=== PATIENT | male | born 1950 | race Caucasian/White ===

== ENCOUNTER 2020-08-17 07:55 | Inpatient (IN) | payer MEDICARE, OTHER, SELFPAY ==
[2020-08-17] VITALS (19 sets, daily range): BP systolic 111–138; BP diastolic 66–92; PULSE 64–84; RESP 16–26; TEMP 36.2–36.7; O2SAT 95–98; BMI 32.4
--- NOTE | 2020-08-17 07:57 | DI.RAD.S_ITS ---
PROCEDURE: XR CHEST 1V INDICATIONS: chest pain TECHNIQUE: One view of the chest was acquired. COMPARISON: None. FINDINGS: Surgical changes and devices: None. Lungs and pleura: Lungs are clear. No pleural effusions or pneumothorax. Mediastinum: Mediastinal contours appear normal. Heart size is normal. Bones and chest wall: No suspicious bony lesions. Overlying soft tissues appear unremarkable. IMPRESSION: No acute cardiopulmonary abnormality. Dictated by: Silverio Ovalles M.D. on 08/17/2020 at 8:16 Approved by: Silverio Ovalles M.D. on 08/17/2020 at 8:16
[2020-08-17 08:18] LABS: Add Manual Diff / Slide Review NO; Basophils Absolute Auto 100 /uL (0-100); Eosinophils Absolute Auto 300 /uL (0-450); Eosinophils Percent Auto 3.4 % (2-4); Hematocrit 41.8 % (41-53); Hemoglobin 13.9 g/dL (13.5-17.5); Lymphocytes Absolute Auto 1900 /uL (1100-4500); Mean Corpuscular HGB Conc 33.2 % (30-36); Mean Corpuscular Hemoglobin 31.7 PG (26-34); Mean Corpuscular Volume 95.4 fL (80-100); Monocytes Absolute Auto 400 /uL (0-900); Neutrophils Absolute Auto 5500 /uL (1500-7000); Neutrophils Percent Auto 67.6 % (50-75); Platelet Count 284 X10^3/uL (150-400); Red Blood Cell Count 4.38 X10^6/uL (4.5-5.9); White Blood Cell Count 8.1 X10^3/uL (4.5-11.0)
[2020-08-17 08:36] LABS: Alanine Aminotransferase 22 IU/L (<50); Albumin 4.4 g/dL (3.5-5.0); Albumin Globulin Ratio 1.6 (1.0-2.8); Alkaline Phosphatase 44 U/L (38-126); Aspartate Aminotransferase 28 IU/L (17-59); BUN Creatinine Ratio 24.6 (6-22); Bilirubin Total 0.6 mg/dL (0.2-1.3); Blood Urea Nitrogen 34 mg/dL (9-20); Calcium 9.4 mg/dL (8.4-10.2); Carbon Dioxide 18 mmol/L (22-32); Chloride 111 mmol/L (98-107); Creatine Kinase 105 U/L (55-170); Estimated Glomerular Filt Rate 50.8 mL/min (>60); Globulin 2.7 g/dL (1.7-4.1); Glucose 155 mg/dL (80-110); HEMOLYSIS 29 (0-50); Lipase 171 U/L (23-300); Potassium 5.3 mmol/L (3.4-5.1); Sodium 138 mmol/L (137-145); Total Protein 7.1 g/dL (6.3-8.2)
[2020-08-17 08:47] LABS: Troponin I < 0.012 ng/mL (0.01-0.034)
[2020-08-17 08:51] LABS: CKMB % Relative Index 1.9 % (1.5-5.0)
--- NOTE | 2020-08-17 08:52 | ED.CHESTPAIN ---
HPI - Chest Pain General Chief Complaint: Chest Pain Stated Complaint: chest pain Time Seen by Provider: 08/17/20 07:57 Source: patient and family Mode of arrival: Ambulatory Limitations: no limitations History of Present Illness HPI narrative: This is a 70-year-old male who comes emergency department with complaint of chest pain radiating down his left upper extremity for the last 24 hours intermittently. Patient states he does typically get pain in his right upper extremity when he sleeping and is worse when he lays on his side. Usually he can roll to his back and better. Overnight it did not matter which side he laid on and willing to his back was sometimes helpful. When he got up this morning and was moving about he continued to have pain in his left upper extremity. He states it does radiate up towards is shoulder and into his left substernal chest. He states he has chronic neck and back pain. He denies any pins and needles in his left upper extremity which he normally gets with his right upper extremity. Was not sweaty, he denies any nausea or vomiting. He did feel little short of breath. He felt a little dizzy. He has not had any recent swelling in his extremities. His most recent episode was at 6:30 a.m. he described as lasting for few minutes and then resolved. Patient has not had any additional so far. Patient does have a history of cardiac stents x3 in 2004. He has had 2 strokes and had a ANUSHA after his 2nd stroke approximately a year ago which he was told was normal. Patient has had lower laminectomy in his lumbar spine as well as ablation than his lumbar spine x2 patient lives in her missed in or again and typically gets his cardiac care and can awake. He is on Plavix, metoprolol, lisinopril, atorvastatin, tamsulosin, fenofibrate and gabapentin as well as nortriptyline. No allergies. No tobacco, occasional alcohol, no illicit. He is currently visiting his daughter here locally. Related Data Home Medications Medication Instructions Recorded Confirmed atorvastatin 40 mg tablet 80 mg PO DAILY 08/17/20 08/17/20 clopidogrel 75 mg tablet 75 mg PO DAILY 08/17/20 08/17/20 fenofibrate nanocrystallized 145 145 mg PO DAILY 08/17/20 08/17/20 mg tablet gabapentin 300 mg capsule 300 mg PO BID 08/17/20 08/17/20 lisinopril 40 mg tablet 20 mg PO DAILY 08/17/20 08/17/20 metoprolol tartrate 50 mg tablet 37.5 mg PO BID 08/17/20 08/17/20 multivitamin with minerals-folic 0.4 tab PO DAILY 08/17/20 08/17/20 acid 0.4 mg tablet (Adult One Daily Multivitamin) nortriptyline 50 mg capsule 50 mg PO BEDTIME 08/17/20 08/17/20 nortriptyline 50 mg capsule mg 08/17/20 omega 0-jqc-bqn-fish oil 100 1,000 cap PO DAILY 08/17/20 08/17/20 mg-160 mg-1,000 mg capsule (Fish Oil) omeprazole 20 mg tablet,delayed 20 mg PO DAILY 08/17/20 08/17/20 release sennosides 8.6 mg tablet (senna) 8.6 mg PO BEDTIME 08/17/20 08/17/20 tamsulosin 0.4 mg capsule 0.4 mg PO DAILY 08/17/20 08/17/20 tamsulosin 0.4 mg capsule mg PO 08/17/20 vitamin E 200 unit capsule 100 unit PO DAILY 08/17/20 08/17/20 Allergies Allergy/AdvReac Type Severity Reaction Status Date / Time No Known Drug Allergies Allergy Verified 08/17/20 08:03 Review of Systems Review of Systems ROS Unobtainable: All systems reviewed & are unremarkable except as noted in HPI and below Patient History Medical History (Updated 08/17/20 @ 16:55 by Jose Antonio Motta DO) BPH (benign prostatic hyperplasia) CAD (coronary artery disease) CVA (cerebral vascular accident) HLD (hyperlipidemia) HTN (hypertension) Surgical History (Updated 08/17/20 @ 14:29 by Jose Antonio Motta DO) H/O right knee surgery History of ankle surgery Hx of heart artery stent Family History Other Hyperlipidemia Hypertension Social History household members: spouse Smoking Status: Never smoker Smoking Status: Never smoker alcohol intake frequency: a few times a month Substance Use Type: does not use Exam Narrative Exam Narrative: GENERAL: Alert and oriented x three, well-nourished male in mild distress. HEENT: Head normocephalic, atraumatic, EOMI, pupils reactive, face symmetric, moist mucous membranes NECK: Supple, full range of motion CARDIOVASCULAR: Regular rate and rhythm without murmurs, rubs or gallops. RESPIRATORY: Breath sounds equal bilaterally, no wheezes rales or rhonchi. ABDOMEN: Soft, nontender. Normoactive bowel sounds all 4 quadrants. No guarding or rebound, rigidity, no mass : No CVA tenderness EXTREMITIES: Normal range of motion, no edema. Neurovascularly intact. Full range of motion of upper and lower extremities. NEUROLOGICAL: Cranial nerves II through XII grossly intact. Moving all extremities SKIN: Warm, dry, no petechiae, no rashes or lesions. Initial Vital Signs Initial Vital Signs: Vital Signs Temperature 98.1 F 08/17/20 08:03 Pulse Rate 68 08/17/20 08:03 Respiratory Rate 22 08/17/20 08:03 Blood Pressure 113/66 08/17/20 08:03 Pulse Oximetry 97 08/17/20 08:03 Scores HEART Score Heart Score history: Highly Suspicious Heart Score EKG: Non-Specific repolarization disturbance Heart Score Age: > or = 65 years old Heart Score risk factors: > 3 risk factors or hx of atherosclerotic disease Heart Score troponin: < or = to normal limit Heart Score Total: 7 Course Orders Ordered: Acetaminophen (Acetaminophen 325 Mg Tablet) 650 mg PO Q6HR PRN PRN Reason: Fever/Mild Pain (1-3) Aspirin (Aspirin Ec 81 Mg Tablet) 81 mg PO DAILY [facility] Atorvastatin Calcium (Atorvastatin 20 Mg Tablet) 40 mg PO BEDTIME [facility] Heparin Sodium (Porcine) (Heparin 5,000 Unit/Ml Vial) 5,000 unit SUBCUT BID [facility] Naloxone HCl (Naloxone 0.4 Mg/Ml Vial) 0.2 mg IV Q2MIN PRN PRN Reason: Opiate Reversal Discontinued Medications Aspirin (Aspirin 81 Mg Chew Tab) 324 mg PO NOW ONE Stop: 08/17/20 09:58 Last Admin: 08/17/20 10:10 Dose: 324 mg Documented by: AUPDIKE Atorvastatin Calcium (Atorvastatin 20 Mg Tablet) 80 mg PO BEDTIME [facility] Consultations Consultation #1: Dr. Dukes, start work up here. keep for observation and stress testing. We did discuss Dr. Ramirez recommendations but do not have ability to ship to [facility]. There is no availability at surrounding hospitals in the region as well patient is asymptomatic with negative troponins x2 and no acute EKG testing. His symptoms are concerning for cardiac cause him feel appropriate to keep for observation. Dr. Dukes asked to be re-contacted if not any new changes. Consultation #2: Dr. Motta, on discussed patient's symptoms, labs and EKG findings today so far. Cardiology recommendations from Dr. Dukes. Plan for observation and stress testing in the a.m.. Vital Signs Vital signs: Vital Signs - 8 hr 08/17/20 08:03 08/17/20 08:09 08/17/20 08:30 Temperature 98.1 F Pulse Rate 68 79 73 Respiratory Rate 22 18 23 Blood Pressure 113/66 Pulse Oximetry 97 97 97 08/17/20 09:00 08/17/20 09:30 08/17/20 10:00 Temperature Pulse Rate 72 72 67 Respiratory Rate 18 24 Blood Pressure Pulse Oximetry 96 96 96 08/17/20 10:06 08/17/20 10:30 08/17/20 11:00 Temperature Pulse Rate 67 66 66 Respiratory Rate 23 26 H 22 Blood Pressure 123/81 124/73 119/75 Pulse Oximetry 97 96 96 MDM - Chest Pain Lab Data Result diagrams: 08/17/20 08:08 08/17/20 08:08 Labs: Lab Results 08/17/20 08/17/20 08/17/20 Range/Units 08:08 08:08 08:08 WBC 8.1 (4.5-11.0) X10^3/uL RBC 4.38 L (4.5-5.9) X10^6/uL Hgb 13.9 (13.5-17.5) g/dL Hct 41.8 (41-53) % MCV 95.4 (80-100) fL MCH 31.7 (26-34) PG MCHC 33.2 (30-36) % RDW 13.0 (11.6-14.8) % Plt Count 284 (150-400) X10^3/uL Neut % (Auto) 67.6 (50-75) % Lymph % (Auto) 23.0 L (25-40) % [place] % (Auto) 5.0 (3-14) % Eos % (Auto) 3.4 (2-4) % Baso % (Auto) 1.0 (0-2) % Neut # (Auto) 5500 (8977-6013) /uL Lymph # (Auto) 1900 (9367-7734) /uL [place] # (Auto) 400 (0-900) /uL Eos # (Auto) 300 (0-450) /uL Baso # (Auto) 100 (0-100) /uL Sodium 138 (137-145) mmol/L Potassium 5.3 H (3.4-5.1) mmol/L Chloride 111 H (98-107) mmol/L Carbon Dioxide 18 L (22-32) mmol/L BUN 34 H (9-20) mg/dL Creatinine 1.38 H (0.66-1.25) mg/dL Estimated GFR 50.8 L (>60) mL/min BUN/Creatinine Ratio 24.6 H (6-22) Glucose 155 H (80-110) mg/dL Calcium 9.4 (8.4-10.2) mg/dL Total Bilirubin 0.6 (0.2-1.3) mg/dL AST 28 (17-59) IU/L ALT 22 (<50) IU/L Alkaline Phosphatase 44 (38-126) U/L Total Creatine Kinase 105 (55-170) U/L CK-MB (CK-2) 2.00 (<2.37) ng/mL CK-MB (CK-2) Rel Index 1.9 (1.5-5.0) % Troponin I < 0.012 (0.01-0.034) ng/mL NT-Pro-B Natriuret Pep 40 (<125) pg/mL Total Protein 7.1 (6.3-8.2) g/dL Albumin 4.4 (3.5-5.0) g/dL Globulin 2.7 (1.7-4.1) g/dL Albumin/Globulin Ratio 1.6 (1.0-2.8) Lipase 171 (23-300) U/L 08/17/20 Range/Units 10:00 WBC (4.5-11.0) X10^3/uL RBC (4.5-5.9) X10^6/uL Hgb (13.5-17.5) g/dL Hct (41-53) % MCV (80-100) fL MCH (26-34) PG MCHC (30-36) % RDW (11.6-14.8) % Plt Count (150-400) X10^3/uL Neut % (Auto) (50-75) % Lymph % (Auto) (25-40) % [place] % (Auto) (3-14) % Eos % (Auto) (2-4) % Baso % (Auto) (0-2) % Neut # (Auto) (8492-5276) /uL Lymph # (Auto) (8775-6989) /uL [place] # (Auto) (0-900) /uL Eos # (Auto) (0-450) /uL Baso # (Auto) (0-100) /uL Sodium (137-145) mmol/L Potassium (3.4-5.1) mmol/L Chloride (98-107) mmol/L Carbon Dioxide (22-32) mmol/L BUN (9-20) mg/dL Creatinine (0.66-1.25) mg/dL Estimated GFR (>60) mL/min BUN/Creatinine Ratio (6-22) Glucose (80-110) mg/dL Calcium (8.4-10.2) mg/dL Total Bilirubin (0.2-1.3) mg/dL AST (17-59) IU/L ALT (<50) IU/L Alkaline Phosphatase (38-126) U/L Total Creatine Kinase (55-170) U/L CK-MB (CK-2) (<2.37) ng/mL CK-MB (CK-2) Rel Index (1.5-5.0) % Troponin I < 0.012 (0.01-0.034) ng/mL NT-Pro-B Natriuret Pep (<125) pg/mL Total Protein (6.3-8.2) g/dL Albumin (3.5-5.0) g/dL Globulin (1.7-4.1) g/dL Albumin/Globulin Ratio (1.0-2.8) Lipase (23-300) U/L ECG Data Interpretation: Sinus rhythm nonspecific interventricular conduction delay. Rate of 77 P are 172 QRS of 122, QTC of 402. No acute ST elevation appreciated but patient does have she pain which but no prior EKGs for comparison. EKG 2. Shows nonspecific rhythm, rate of 68, P are 160 QRS of 124 and QTC 387. Nonspecific change. able to obtain EKG from [facility] from 07/03/20 which does appear similar to todays EKGS. [facility] Narrative Medical decision making narrative: This is a 70-year-old male with symptoms that are concerning for cardiac cause of his chest discomfort. Patient did have a prior EKG did not show any acute EKG changes from his old EKG from June of 2020. Troponin has been negative x2 but with his cardiac history and symptomatology felt it was prudent to keep patient for observation and stress testing. This was discussed with Cardiology and Dr. Dukes agreed. Spoke with our hospitalist who kindly accepts for observation. Discharge Plan Departure Patient Disposition: Admitted as Observation Clinical Impression: Chest pain Admit Date/Time: 08/17/20 12:29 Admit Provider: Jose Antonio Motta
[2020-08-17 09:26] LABS: NT-proBNP (BNP-Adult 18+) 40 pg/mL (<125)
[2020-08-17] MEDS: ASPIRIN 81 MG CHEW TAB 324 MG PO (10:10)
[2020-08-17 10:42] LABS: Troponin I < 0.012 ng/mL (0.01-0.034)
[2020-08-17 14:06] LABS: COVID19 - ADMIT (NP swab/PCR) Negative (Negative)
--- NOTE | 2020-08-17 14:08 | DI.MRI.S_ITS ---
PROCEDURE: MR STROKE Pre- and post-contrast brain MRI, non-contrast brain MR angiogram, pre- and postcontrast neck MR angiogram INDICATIONS: L arm tingling, numbness TECHNIQUE: Brain: Noncontrast axial T1 spin echo, axial T2 fast spin echo, sagittal and axial FLAIR, coronal T2 fast spin echo, axial gradient echo, axial diffusion and ADC through the brain. After the administration of contrast, axial 3D VIBE of the cranial vasculature and brain. Brain MRA: Non-contrast 3-D time of flight MR angiogram, with multiple uidhxnp-tfuwtfbse-omvcattcyj (MIP) reformats performed. Neck MRA: Axial and sagittal TruFISP through the neck. Coronal dynamic MR angiogram during administration of contrast in the arterial and venous phases, with 3-dimenstional kbkcpms-yirydhhcy-uoentidjaz (MIP) reformats constructed from subtraction images. COMPARISON: None. FINDINGS: Image quality: Degraded by susceptibility artifact related to metallic staple in the right frontal scalp. BRAIN: CSF spaces: Ventricles are normal in size and shape. Basal cisterns are patent. No extra-axial fluid collections. Brain: No intracranial bleeds or mass effects. There is mild, diffuse cerebral volume loss. Harris-white matter interface is normal. Diffusion weighted images show no acute ischemic insults. Chronic infarct involving the medial aspect of the right occipital lobe is noted. Chronic, small lacunar infarct noted in the posterior aspect of the left temporal lobe. Brainstem appears normal. Normal intravascular flow voids are present. Dural sinuses demonstrate normal postcontrast enhancement. No abnormal intracranial enhancement. Incidental note made of a small developmental venous anomaly in the right cerebellar hemisphere. Skull and face: Calvarial marrow signal is normal. Orbits appear normal. Sinuses: Sinuses and mastoids are clear. BRAIN MR ANGIOGRAM: Anterior circulation: Intracranial internal carotid arteries are normal in size and enhancement. The flow within the paired anterior cerebral arteries is normal and symmetric. The flow within the middle cerebral arteries is normal and symmetric. The anterior communicating artery is seen. No stenoses, occlusions, or aneurysms. Posterior circulation: The visualized portions of the vertebral arteries demonstrate normal caliber, and join to form a normal appearing basilar artery. Short segment, high-grade stenoses noted in the origin and distal P1 segment of the right posterior cerebral artery. Short segment, high-grade stenosis noted in the distal P1 segment of the left posterior cerebral artery. No occlusions, or aneurysms. NECK MR ANGIOGRAM: Carotids: Great vessels demonstrate a conventional anatomy as they arise from the aortic arch. The origins of the common carotid arteries appear patent. The calibers and courses of both common carotid arteries are normal. Atherosclerotic irregularity noted in the origins of the internal carotid arteries bilaterally which causes less than 50% stenosis of the vessels. Posterior circulation: Mild atherosclerotic stenosis noted in the origin of the right vertebral artery. Moderate atherosclerotic stenosis in the origin of the left vertebral artery. More superior portions of both vertebral arteries demonstrate normal course and caliber, and join to form a normal appearing basilar artery. Miscellaneous: Subclavian arteries appear patent. Pre-contrast images through the neck show no soft tissue abnormalities. IMPRESSION: BRAIN MRI: 1. No acute intracranial disease process. 2. No areas of acute infarction. 3. No intracranial hemorrhage. 4. Chronic right occipital infarct and small chronic posterior left temporal lacunar infarct. Area 5. No abnormal intracranial mass or suspicious postcontrast enhancement. BRAIN MR ANGIOGRAM: 1. Multifocal high-grade stenoses involving the P1 segment of the right posterior cerebral artery and high-grade stenosis of the distal P1 segment of the left posterior cerebral artery. 2. No hemodynamic significant stenosis involving the anterior circulation. 3. No large vessel occlusion or aneurysm. NECK MR ANGIOGRAM: 1. Less than 50% stenosis of the origins of the internal carotid arteries bilaterally. 2. Mild stenosis of the origin of the right vertebral artery and moderate stenosis of the origin the left vertebral artery. Dictated by: Anay Todd MD, PhD on 08/17/2020 at 16:54 Approved by: Anay Todd MD, PhD on 08/17/2020 at 17:00
--- NOTE | 2020-08-17 14:08 | DI.CT.S_ITS ---
PROCEDURE: CT STROKE INDICATIONS: L facial droop, L arm tingling now resolved TECHNIQUE: Noncontrast 4.5 mm thick angled axial sections acquired from the foramen magnum to the vertex, with coronal reformats. For radiation dose reduction, the following was used: automated exposure control, adjustment of mA and/or kV according to patient size. COMPARISON: None. FINDINGS: Image quality: Excellent. CSF spaces: Basal cisterns are patent. No extra-axial fluid collections. The ventricles are symmetric in size and shape. Brain: Encephalomalacia and gliosis noted in the right [place] territory in the medial occipital and temporal lobes. No intracranial bleeds or masses. There is cerebral volume loss for age, with resultant ventricular and sulcal prominence. There are periventricular and deep white matter chronic small vessel ischemic changes. There is intracranial internal carotid artery atherosclerosis. Skull and face: Calvarium and visualized facial bones appear intact, without suspicious lesions. Sinuses: Bilateral maxillary nasal antral windows noted, and small 1 cm left maxillary sinus retention cyst present. IMPRESSION: 1. No intracranial hemorrhage or mass effect. 2. Old right [place] infarct 3. Prior maxillary sinus surgery This study fulfills neurological imaging criteria for inclusion or exclusion of acute stroke therapies based on available published neurological guidelines. Critical results were discussed with the patient's nurse on the floor, Keshia, at 02:13 PM [place] time on 08/17/20 Dictated by: Jack Sun M.D. on 08/17/2020 at 14:07 Approved by: Jack Sun M.D. on 08/17/2020 at 14:15
--- NOTE | 2020-08-17 14:20 | PC.ADMIT ---
[id number] [facility] Admission Note: Safe hand off from Yvette TACO MAKER. Patient arrived via wheelchair and safe transfer to bed. Patient is ambulating, just stand by assist. Patient VSS. Lung sounds clear bilaterally and bowel tones are active in all quadrants. Tele was initiated and patient initial reading was tele: NS, BBB. During patient intake patient was describing symptoms on admission and stated that he had facial droop this AM and tingling in L arm. Patient also asked me if it was abnormal to have difficulty swallowing. We talked about his baseline and that normally he has the ability to swallow. Dr. Motta notified at 1415 of these findings. The patient,Lavelle Moseley,70 y/o, was given written information regarding hospital policies, unit procedures and contact persons. Patient's smoking status: Never smoker. Vital Signs - 8 hr 08/17/20 08:03 08/17/20 08:09 08/17/20 08:30 Temperature 98.1 F Pulse Rate 68 79 73 Respiratory Rate 22 18 23 Blood Pressure 113/66 Pulse Oximetry 97 97 97 08/17/20 09:00 08/17/20 09:30 08/17/20 10:00 Temperature Pulse Rate 72 72 67 Respiratory Rate 18 24 Blood Pressure Pulse Oximetry 96 96 96 08/17/20 10:06 08/17/20 10:30 08/17/20 11:00 Temperature Pulse Rate 67 66 66 Respiratory Rate 23 26 H 22 Blood Pressure 123/81 124/73 119/75 Pulse Oximetry 97 96 96 08/17/20 11:30 08/17/20 12:03 08/17/20 12:04 Temperature Pulse Rate 66 64 66 Respiratory Rate 19 18 19 Blood Pressure 120/72 121/77 Pulse Oximetry 97 98 98 08/17/20 12:30 08/17/20 13:15 08/17/20 13:56 Temperature 97.9 F Pulse Rate 68 70 Respiratory Rate 17 16 Blood Pressure 111/74 128/75 Pulse Oximetry 98 95 95
--- NOTE | 2020-08-17 14:25 | PM.HP.1 ---
History of Present Illness History of Present Illness Date Patient Seen: 08/17/20 Time Patient Seen: 14:25 Chief complaint: chest pain Narrative: This is a 70-year-old male with a past medical history of CAD (3x stents in 2004), prior stroke with left-sided hemianopia as his only residual deficit, hypertension, BPH who presented with intermittent chest pain for the past week. Patient states that he has been having episodes of chest pain, usually at night that her left-sided and somewhat radiating into his left shoulder that usually resolve with changing to his other side. Had however this morning the chest pain would not go way. This pain was different than the others and was more of a squeezing like sensation over the left side of his chest with radiation into his left arm. Subsequently at the same time, he experienced less than 10 minutes of left-sided facial droop, left arm weakness, numbness, and difficulty speaking. The neurological symptoms were not stated to the emergency room provider. He states further that over the past few weeks he has become quite sweaty with exertion but denies any shortness of breath or palpitations. He denies any headaches, or vision changes. He denies fever or chills. He typically lives in [place], currently visiting the area. In the emergency room, the patient's vital signs were unremarkable. Initial laboratory evaluation did not show any obvious abnormalities, but potassium was mildly high at 5.3, CO2 slightly low 18, BUN slightly up at 34, creatinine slightly up at 1.38, his baseline is unknown. Glucose was 155. His troponin testing was negative x2. He was admitted initially for evaluation of his chest pain after consultation with cardiology recommended stress testing, however given his TIA symptoms he was also ordered for a CT scan which did not show any active bleeding and an MRI. Patient History Medical History (Updated 08/17/20 @ 16:55 by Jose Antonio Motta DO) BPH (benign prostatic hyperplasia) CAD (coronary artery disease) CVA (cerebral vascular accident) HLD (hyperlipidemia) HTN (hypertension) Surgical History (Updated 08/17/20 @ 14:29 by Jose Antoino Motta DO) H/O right knee surgery History of ankle surgery Hx of heart artery stent Family & Social History Family History Other Hyperlipidemia Hypertension Social History: household members spouse Prior Living Arrangements House Safety & Behavioral: Feels Safe in Current Yes Environment Been Physically Hurt or No Threatened By a Person Suicidal Ideation Description None Suicide Plan Description No Plan Tobacco & Substance use: Smoking Status Never smoker alcohol intake frequency a few times a month Substance Use Type does not use Meds Home Medications and Allergies Home Medications Medication Instructions Recorded Confirmed Type atorvastatin 40 mg tablet 80 mg PO DAILY 08/17/20 08/17/20 History clopidogrel 75 mg tablet 75 mg PO DAILY 08/17/20 08/17/20 History fenofibrate nanocrystallized 145 145 mg PO DAILY 08/17/20 08/17/20 History mg tablet gabapentin 300 mg capsule 300 mg PO BID 08/17/20 08/17/20 History lisinopril 40 mg tablet 20 mg PO DAILY 08/17/20 08/17/20 History metoprolol tartrate 50 mg tablet 37.5 mg PO BID 08/17/20 08/17/20 History multivitamin with minerals-folic 0.4 tab PO DAILY 08/17/20 08/17/20 History acid 0.4 mg tablet (Adult One Daily Multivitamin) nortriptyline 50 mg capsule 50 mg PO BEDTIME 08/17/20 08/17/20 History nortriptyline 50 mg capsule mg 08/17/20 History omega 2-jao-vfu-fish oil 100 1,000 cap PO DAILY 08/17/20 08/17/20 History mg-160 mg-1,000 mg capsule (Fish Oil) omeprazole 20 mg tablet,delayed 20 mg PO DAILY 08/17/20 08/17/20 History release sennosides 8.6 mg tablet (senna) 8.6 mg PO BEDTIME 08/17/20 08/17/20 History tamsulosin 0.4 mg capsule 0.4 mg PO DAILY 08/17/20 08/17/20 History tamsulosin 0.4 mg capsule mg PO 08/17/20 History vitamin E 200 unit capsule 100 unit PO DAILY 08/17/20 08/17/20 History Allergies Allergy/AdvReac Type Severity Reaction Status Date / Time No Known Drug Allergies Allergy Verified 08/17/20 08:03 Review of Systems Review of Systems Narrative: All other systems reviewed with the patient and are negative unless otherwise stated. Exam Vital Signs (past 8 hours): - 08/17/20 08:03 08/17/20 08:09 08/17/20 08:30 Temperature 98.1 F Pulse Rate 68 79 73 Respiratory Rate 22 18 23 Blood Pressure 113/66 Pulse Oximetry 97 97 97 08/17/20 09:00 08/17/20 09:30 08/17/20 10:00 Temperature Pulse Rate 72 72 67 Respiratory Rate 18 24 Blood Pressure Pulse Oximetry 96 96 96 08/17/20 10:06 08/17/20 10:30 08/17/20 11:00 Temperature Pulse Rate 67 66 66 Respiratory Rate 23 26 H 22 Blood Pressure 123/81 124/73 119/75 Pulse Oximetry 97 96 96 08/17/20 11:30 08/17/20 12:03 08/17/20 12:04 Temperature Pulse Rate 66 64 66 Respiratory Rate 19 18 19 Blood Pressure 120/72 121/77 Pulse Oximetry 97 98 98 08/17/20 12:30 08/17/20 13:15 08/17/20 13:56 Temperature 97.9 F Pulse Rate 68 70 Respiratory Rate 17 16 Blood Pressure 111/74 128/75 Pulse Oximetry 98 95 95 Oxygen Delivery Method Room Air Oxygen Flow Rate 0 Narrative Exam Narrative: GENERAL APPEARANCE: Well developed, well nourished, in no acute distress. SKIN: Inspection of the skin reveals no rashes, ulcerations or petechiae. HEENT: Normocephalic atraumatic, extraocular muscles are intact, oropharynx is clear and mucous membranes are moist, neck is supple without adenopathy NECK: Supple and symmetric. There was no thyroid enlargement, and no tenderness, or masses were felt. CHEST: Normal AP diameter and normal contour without any kyphoscoliosis. LUNGS: Auscultation of the lungs revealed no wheezes, rhonchi, or rales. CARDIOVASCULAR: There was a regular rate and rhythm without any murmurs, gallops, rubs. Peripheral pulses were 2+ and symmetric. ABDOMEN: Soft and nontender with normal bowel sounds. No ascites was noted. MUSCULOSKELETAL: There was no tenderness or effusions noted. Muscle strength and tone were normal. EXTREMITIES: No cyanosis, clubbing or edema. NEUROLOGIC: Alert and oriented x 3. Normal affect. Strength is +5/5 in the Upper Extremities and Lower Extremities Bilaterally. Sensation to touch was normal. :Left hemianopia (old from prior CVA, unchanged) Objective ECG Impression: Sinus rhythm with a nonspecific interventricular conduction delay Labs Result Diagrams: 08/17/20 08:08 08/17/20 08:08 Labs: Laboratory Results - last 24 hr 08/17/20 08/17/20 08/17/20 08:08 08:08 08:08 WBC 8.1 RBC 4.38 L Hgb 13.9 Hct 41.8 MCV 95.4 MCH 31.7 MCHC 33.2 RDW 13.0 Plt Count 284 Neut % (Auto) 67.6 Lymph % (Auto) 23.0 L M[place]racken % (Auto) 5.0 Eos % (Auto) 3.4 Baso % (Auto) 1.0 Neut # (Auto) 5500 Lymph # (Auto) 1900 [place] # (Auto) 400 Eos # (Auto) 300 Baso # (Auto) 100 Sodium 138 Potassium 5.3 H Chloride 111 H Carbon Dioxide 18 L BUN 34 H Creatinine 1.38 H Estimated GFR 50.8 L BUN/Creatinine Ratio 24.6 H Glucose 155 H Calcium 9.4 Total Bilirubin 0.6 AST 28 ALT 22 Alkaline Phosphatase 44 Total Creatine Kinase 105 CK-MB (CK-2) 2.00 CK-MB (CK-2) Rel Index 1.9 Troponin I < 0.012 NT-Pro-B Natriuret Pep 40 Total Protein 7.1 Albumin 4.4 Globulin 2.7 Albumin/Globulin Ratio 1.6 Lipase 171 SARS-CoV-2 (PCR) 08/17/20 08/17/20 10:00 13:01 WBC RBC Hgb Hct MCV MCH MCHC RDW Plt Count Neut % (Auto) Lymph % (Auto) [place] % (Auto) Eos % (Auto) Baso % (Auto) Neut # (Auto) Lymph # (Auto) [place] # (Auto) Eos # (Auto) Baso # (Auto) Sodium Potassium Chloride Carbon Dioxide BUN Creatinine Estimated GFR BUN/Creatinine Ratio Glucose Calcium Total Bilirubin AST ALT Alkaline Phosphatase Total Creatine Kinase CK-MB (CK-2) CK-MB (CK-2) Rel Index Troponin I < 0.012 NT-Pro-B Natriuret Pep Total Protein Albumin Globulin Albumin/Globulin Ratio Lipase SARS-CoV-2 (PCR) Negative Assessment & Plan Assessment & Plan narrative: This is a 70-year-old male with a past medical history of CAD (3x stents in 2004), prior stroke with left-sided hemianopia as his only residual deficit, hypertension, BPH who presented with intermittent chest pain for the past week. 1. TIA - patient had <10 minutes of L facial droop, weakness, dysarthia. CT negative so far. MRI ordered. - will obtain TTE - continue plavix and statin therapy. ABCD2 score of 3. - continue telemetry. 2. Chest pain, acute, improved. - HEART score is 5. Will admit for serial troponins, currently negative x2. EKG without evidence of acute ischemia. He is currently without chest pain. - continue home plavix and statin. - has history of CAD with 3x stents. - CXR without evidence of acute disease. 3. Hx CAD - continue home medications. hx of 3 stents placed in the past. Follows with cardiology in [facility]. Lives in [place], [place]. 4. HTN - continue home medications 5. BPH - continue home meds Code: Full, surrogate decision maker is the patient's or son Dispo: Admitted Under observation status as his stay is not expected to exceed 2 midnights DVT: Heparin subcu b.i.d. COVID-19 COVID-19 status: Negative Scores ABCD2 Age >= 60 years: yes Initial BP. Either SBP >= 140 or DBP >= 90.: no Clinical features of the TIA: unilateral weakness Duration of symptoms: < 10 minutes History of diabetes: no ABCD2 Score: 3 NIHSS Level of Conciousness: Alert, keenly responsive Ask month/age: Answers both questions correctly. Open/close eyes, close hand: Performs both tasks correctly Best gaze horizontal: Normal Visual beard: No visual loss (old stroke prior left sided vision loss) Facial palsy: Normal symetrical movement Left arm drift: No drift for full 10 sec Right arm drift: No drift for full 10 sec Left leg drift: No drift for full 5 sec Right leg drift: No drift for full 5 sec Limb ataxia: Absent Sensory on face/arms/legs: Normal, no sensory loss Best language: No aphasia, normal Dysarthria: Normal Extinction or inattention: No abnormality Total NIH Stroke scale score: 0 Quality VTE Deep Vein Thrombosis/Pulmonary Embolism Present on Admission: No
--- NOTE | 2020-08-17 15:18 | DI.NM.S_ITS ---
PROCEDURE: NM EFRAÍN PERF SPECT R&S PHARM Rest and pharmacological stress myocardial perfusion SPECT with gated imaging and ejection fraction RADIOPHARMACEUTICAL: 25.3 mCi Tc-99m tetrafosmin IV at rest and 23.5 mCi Tc-99m tetrafosmin IV at peak effect of pharmacological stress. [id number] was performed. TECHNIQUE: Radiopharmaceutical was injected at peak stress test, and also at rest. SPECT images were obtained. SPECT myocardial perfusion images were displayed in short axis, horizontal long axis, and vertical long axis views. Gated images were reviewed using [employer] software. COMPARISON: None. CARDIAC STRESS: A pharmacologic stress test was performed under the supervision of an attending staff, using an infusion of lexiscan 0.4mg IV X1. Hemodynamic data: There is normal blood pressure and heart rate response to pharmacologic stress. Symptoms: The patient denied anginal chest pain. Aminophylline: none EKG: No diagnostic changes of ischemia; no ectopy. FINDINGS: Raw data: There is good myocardial uptake of radiotracer. No significant motion artifacts. Ieji-sx-bonyh ratio is 0.34 (normal is less than 0.38 for tetrafosmin tracer). Left ventricle function: Gated images demonstrate apical hypokinesis. Transient ischemic dilation present visually. Left ventricle resting end diastolic volume is 70mL. Left ventricle stress ejection fraction is 60%; normal range is above 45%. Myocardial perfusion: There is a reversible severe large defect in the apical 1/3-1/4th of the myocardium, concerning for high risk ischemia. No infarction. SSS 21, SRS 1. IMPRESSION: Abnormal high risk pharmaceutical nuclear stress test, concerning for high risk ischemia 1) There is a reversible severe large defect in the apical 1/3-1/4th of the myocardium, concerning for high risk ischemia. No infarction. SSS 21, SRS 1. 2) Normal left ventricular size with normal systolic function (EF 60% post stress). Post stress images show new apical hypokinesis, suggesting high risk stress test. Resting EF 83% with normal wall motion. 3) Visual transient ischemic dilatation present, suggesting high risk CAD. 4) No angina during the study. 5) No prior nuclear stress test available for comparison. Findings discussed with Dr. Cerrato and I have recommended that the patient be transfer to [facility] for cardiology consultation and invasive coronary angiography. Dictated by: Tayla Briceno MD on 08/19/2020 at 16:40 Approved by: Tayla Briceno MD on 08/19/2020 at 16:54
--- NOTE | 2020-08-17 16:50 | DI.ECHO.S_ITS ---
[facility]---------+ [facility] +---------+ : : [address] : : : : [id number] : : : : Phone: [phone]+ Echocardiogram Report + + :Name: OBI WHITAKER NStudy Date: 08/18/2020 Height: 70 in : :[facility] ReadingLocation: Weight: 226 lb : : Gender: Male BSA: 2.2 m2 : :: 1950 Age: 70 yrs BP: 111/74 mmHg: :Reason For Study: Chest pain : :Ordering Physician: SHYANN, : :ESSENCE DOUGLAS Performed By: Olu Woo : :Referring: ESSENCE BOOTHE : + + Interpretation Summary 1) Mildly increased left ventricular thickness (concentric) with normal size, and normal systolic function (EF 55-60%). 2) Apical septum may be hypokinetic (endothelial visualization is limited in this wall). 3) Normal right ventricular size and function. 4) No significant valvular abnormalities. 5) The ascending aorta is mildly enlarged at 4.2cm. 6) No prior Echo available for comparison. Procedure: A two-dimensional transthoracic echocardiogram with color flow and Doppler was performed. The study quality was technically adequate. There is no prior echocardiogram noted for this patient. The patient was in sinus rhythm with heart rates between 66-84 bpm during the exam. Left Ventricle: The left ventricle is normal in size. There is mild concentric left ventricular hypertrophy. Left ventricular systolic function is normal. The ejection fraction is estimated to be 55-60%. Apical septum may be hypokinetic. Diastolic parameters suggest a relaxation abnormality of the left ventricle, consistent with probable normal filling pressures. Right Ventricle: The right ventricle is normal in size and function. Atria: Both atria are normal in size. There is no Doppler evidence for an interatrial shunt. Mitral Valve: There is mild mitral annular calcification. There is mild mitral regurgitation. Aortic Valve: There is mild aortic valve sclerosis. There is no aortic valve stenosis. No aortic regurgitation is present. Tricuspid Valve: The tricuspid valve is normal in structure and function. There is trace tricuspid regurgitation. The right ventricular systolic pressure is estimated to be at least 29 mmHg based on an estimated right atrial pressure of 3 mm Hg. Pulmonic Valve: The pulmonic valve is normal in structure and function. There is mild pulmonic regurgitation. Great Vessels: The aortic root is normal size. The ascending aorta is mildly enlarged. The IVC is of normal diameter and collapses greater than 50% with a sniff. This suggests a low right atrial pressure of 3 mm Hg. Pericardium/ Pleura There is no pericardial effusion. There is no pleural effusion. MMode/2D Measurements & Calculations LVIDd: 5.5 cm LVOT diam: 2.5 cm LVIDs: 3.7 cm Ao root diam: 3.5 cm FS: 33.0 % asc Aorta Diam: 4.2 cm IVSd: 1.3 cm LVPWd: 1.3 cm LV marrero. diameter/BSA (cm/m^2): 2.5 LV sys. diameter/BSA (cm/m^2): 1.7 LA A2 area: 21.5 cm2 RA long axis: 5.1 cm LA A4 area: 15.7 cm2 RA area: 11.7 cm2 LA length (vol): 5.3 cm RA vol: 22.7 ml LA vol: 54.0 ml RA : 10.3 ml/m2 LA vol index: 24.5 ml/m2 TAPSE: 2.5 cm Doppler Measurements & Calculations Ao V2 max: 160.3 cm/sec LVOT Max Jorge: 105.5 cm/sec Ao V2 mean: 123.5 cm/sec LV V1 max P.5 mmHg Ao max P.3 mmHg LV V1 VTI: 20.8 cm Ao mean P.6 mmHg REINA(I,D): 3.0 cm2 Ao V2 VTI: 34.5 cm REINA(V,D): 3.3 cm2 sev ratio: 0.60 REINA indexed to BSA (cm^2/m^2): 1.4 MV E max jorge: 58.3 cm/sec TR max jorge: 253.6 cm/sec MV A max jorge: 112.8 cm/sec TR max P.7 mmHg MV E/A: 0.52 PA V2 max: 129.3 cm/sec Med Peak E' Jorge: 4.0 cm/sec PA V2 mean: 87.8 cm/sec E/E' med: 14.6 PA mean P.4 mmHg Lat Peak E' Jorge: 4.3 cm/sec PA pr(Accel): 41.6 mmHg E/E' lat: 13.5 E/e' average: 14.1 MV dec time: 0.22 sec SV(LVOT): 103.4 ml Reading Physician:09:19 AM
--- NOTE | 2020-08-17 17:26 | PC.NURSE ---
EVENING SHIFT: Report received, care assumed 1530. Pt. off unit (and off tele) for imaging. 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 Relayed to Dr. Motta. Pt. returned to bed approximately 1615. Ate a few bites of food and reported intermittent left substernal chest pain. Tele reapplied; normal sinus rhythm with BBB and few PVC's. Somewhat hypertensive at 138/92 but otherwise VSS. Denies SOB, 97% on RA. Pain resolved spontaneously.
[2020-08-17 18:51] LABS: Troponin I < 0.012 ng/mL (0.01-0.034)
[2020-08-17] MEDS: ATORVASTATIN 20 MG TABLET 40 MG PO (20:18)
[2020-08-17] MEDS: HEPARIN 5,000 UNIT/ML VIAL 5000 UNIT SUBCUT (20:20)
[2020-08-18] VITALS (36 sets, daily range): BP systolic 87–186; BP diastolic 59–121; PULSE 77–109; RESP 14–22; TEMP 35.8–36.6; O2SAT 94–100
[2020-08-18] MEDS: ACETAMINOPHEN 325 MG TABLET 650 MG PO (01:03)
[2020-08-18] MEDS: NITROGLYCERIN 0.4 MG SL TAB SL ×4 (01:04→06:17)
--- NOTE | 2020-08-18 01:16 | PC.NURSE ---
Addendum entered by Heike Shen R.N. 08/18/20 07:47: Patient blood pressure increasing at 0500. At 0545 provider called w/ BP 162/100 HR 91. Requested call back if BP does not improve. At 0600 provider notified of increased BP 168/116 HR 90. Ordered IV metoprolol. On entering the room patient complaining of severe chest pain radiating substernal to L arm and shoulder, mild pins and needles in hand, and mild headache. This RN obtained and administered ordered morphine and requested the presence of the provider as metoprolol was being pushed. Provider verbal order 1x dose nitro SL, given to pt, symptoms relieved. At approx 0700 BP began to rise again. Pt experiencing chest pain again. Provider notified, AM dose of metoprolol ordered to be given early. Chest pain not controlled, morphine given, no change in symptoms. CHRIS Vega contacted provider, ordered 1 inch nitro paste and EKG. Report given, patient care transferred. Patient remains on 2L NC for comfort during chest pain episodes. Addendum entered by Cata Andrade R.N. 08/18/20 03:14: At approximately 0245 patient had c/o chest pain and SOB, BP 137/90 and HR 97, 1 dose Nitro SL and 2 L O2 via nasal canula administered. Provider contacted, EKG ordered and obtained. Chest pain resolved with nitro and patient on 1 L O2 at this time, sat 96, continue for comfort. BP @ 0250 99/64, HR 100. BP @0300 108/62, HR 91. Addendum entered by Heike Shen R.N. 08/18/20 01:48: Following BP @ 0120 103/69 HR 94. BP @ 0125 117/75 HR 94. Patient remains asymptomatic. Addendum entered by Heike Shen R.N. 08/18/20 01:47: EDIT: 1st B/P post SL nitro 87/65, not 87/55. Original Note: Patient complainig fo non-radiating l sided substernal chest pain, recently increasing and climbing. Provider made aware, BP 120/70s, nitro SL and IV morphine ordered. Pt given 1 dose SL nitro, chest pain resolved, BP 87/55, asymptomatic. Will continue to monitor for any hypotensive episodes. Tylenol given as adjunct therapy for potential headache.
[2020-08-18] MEDS: MORPHINE 2 MG/ML INJ IV ×2 (06:16→07:40)
[2020-08-18] MEDS: METOPROLOL TARTRATE 5 MG/5 ML INJ IV (06:18)
[2020-08-18 06:30] LABS: Add Manual Diff / Slide Review NO; Basophils Absolute Auto 100 /uL (0-100); Basophils Percent Auto 0.7 % (0-2); Eosinophils Absolute Auto 300 /uL (0-450); Eosinophils Percent Auto 3.3 % (2-4); Hematocrit 41.3 % (41-53); Hemoglobin 13.5 g/dL (13.5-17.5); Lymphocytes Absolute Auto 2400 /uL (1100-4500); Lymphocytes Percent Auto 30.7 % (25-40); Mean Corpuscular HGB Conc 32.8 % (30-36); Mean Corpuscular Hemoglobin 31.2 PG (26-34); Mean Corpuscular Volume 95.2 fL (80-100); Monocytes Absolute Auto 500 /uL (0-900); Monocytes Percent Auto 6.5 % (3-14); Neutrophils Absolute Auto 4600 /uL (1500-7000); Neutrophils Percent Auto 58.8 % (50-75); Platelet Count 269 X10^3/uL (150-400); Red Blood Cell Count 4.34 X10^6/uL (4.5-5.9); Red Cell Distribution Width 13.1 % (11.6-14.8); White Blood Cell Count 7.7 X10^3/uL (4.5-11.0)
[2020-08-18 06:36] LABS: BUN Creatinine Ratio 26.3 (6-22); Blood Urea Nitrogen 36 mg/dL (9-20); Calcium 9.5 mg/dL (8.4-10.2); Carbon Dioxide 21 mmol/L (22-32); Chloride 108 mmol/L (98-107); Estimated Glomerular Filt Rate 51.2 mL/min (>60); Glucose 98 mg/dL (80-110); HEMOLYSIS < 15 (0-50); Magnesium 1.3 mg/dL (1.6-2.3); Sodium 136 mmol/L (137-145)
[2020-08-18 06:48] LABS: Troponin I < 0.012 ng/mL (0.01-0.034)
[2020-08-18 06:56] LABS: Potassium 5.3 mmol/L (3.4-5.1)
[2020-08-18 07:01] LABS: Hemoglobin A1C% w Est Avg Glu 5.9 % (4.0-6.0)
[2020-08-18] MEDS: MAGNESIUM SULFATE 2 GM/50 ML PIGGYBACK IV (07:36)
[2020-08-18] MEDS: METOPROLOL IR 25 MG TABLET 37.5 MG PO (07:36)
--- NOTE | 2020-08-18 07:44 | PC.NURSE ---
Day shift: Dr Cerrato informed about Pt's chest pain. to order nitro paste. RN gave IV morphine per APR.. Stat EKG as well. Pt remains NPO. Will continue to monitor. Call light in reach.
[2020-08-18] MEDS: NITROGLYCERIN OINT 1 INCH/GM OINT...G. TOP (07:53)
[2020-08-18] MEDS: ATORVASTATIN 20 MG TABLET 80 MG PO (08:51)
[2020-08-18] MEDS: ASPIRIN EC 81 MG TABLET PO (08:51)
[2020-08-18] MEDS: TAMSULOSIN 0.4 MG CAPSULE PO (08:51)
[2020-08-18] MEDS: lisinopriL 20 MG TABLET PO (08:51)
[2020-08-18] MEDS: GABAPENTIN 300 MG CAPSULE PO ×2 (08:51→20:20)
[2020-08-18] MEDS: PANTOPRAZOLE DR 20 MG TABLET PO (08:52)
[2020-08-18] MEDS: HEPARIN 5,000 UNIT/ML VIAL 5000 UNIT SUBCUT ×2 (08:52→20:20)
[2020-08-18] MEDS: FENOFIBRATE, MICRONIZED 67 MG CAPSULE 201 MG PO (09:00)
--- NOTE | 2020-08-18 11:30 | PC.NURSE ---
Day shift: Nitro paste placed left upper chest per APR. Seems to help w/ chest pain as Pt reporting 0/10 chest pain. He is on RA at 95%. Per Stress sterile technician ok for Pt to have water. Tolerating water well. Stress Test planned for 1400 today. Pt knows this now. Pt also OOB to void (voided approx 700ml). Denied any dizziness when OOB. Call light in reach. Agrees to not get OOB w/o help from staff.
[2020-08-18 13:23] LABS: TSH w/ Reflex to FT4 4.09 uIU/mL (0.47-4.68)
--- NOTE | 2020-08-18 14:10 | PC.NURSE ---
Day shift: Pt off unit for stress test at approx 1410.
--- NOTE | 2020-08-18 14:44 | PC.NURSE ---
Day shift: Pt back on AC unit at approx 1440. He denies any chest pain at tis time. He is eating food and this was ok with Stress Logistics Analyst. Call light in reach.
[2020-08-18] MEDS: SENNOSIDES 8.6 MG TABLET PO (20:27)
[2020-08-18] MEDS: NORTRIPTYLINE HCL 25 MG CAPSULE 50 MG PO (20:27)
[2020-08-18] MEDS: SODIUM CHLORIDE 0.9% FLUSH 10 ML IV (20:29)
--- NOTE | 2020-08-18 20:57 | PM.PN.1 ---
Subjective Subjective Date Patient Seen: 08/18/20 Interval history: Patient is 70-year-old male with history of CAD, status post multiple stents, admitted with acute chest pain. Patient also reported less than 10 minutes of left-sided facial droop, left arm weakness, numbness, and difficulty speaking. He was having ongoing pain overnight and severe pain this morning not relieved with morphine and sublingual nitroglycerin. However pain was relieved after topical nitroglycerin and he has remained pain-free most of the day. His repeat troponin values have remained normal. Repeat EKGs have not shown any acute ST or T-wave abnormality. Exam Vital Signs (past 8 hours): - 08/18/20 13:10 08/18/20 13:54 08/18/20 17:30 Temperature 96.4 F L 97.7 F Pulse Rate 84 94 H Respiratory Rate 14 18 Blood Pressure 104/59 L 96/59 L Pulse Oximetry 95 95 95 08/18/20 18:00 Temperature Pulse Rate Respiratory Rate Blood Pressure Pulse Oximetry 95 Oxygen Delivery Method Room Air Oxygen Flow Rate 0 Narrative Exam Narrative: General: Alert, pleasant male in no acute distress Objective Labs Result Diagrams: 08/18/20 06:06 08/18/20 06:06 Labs: Laboratory Results - last 24 hr 08/18/20 08/18/20 08/18/20 06:06 06:06 06:06 WBC 7.7 RBC 4.34 L Hgb 13.5 Hct 41.3 MCV 95.2 MCH 31.2 MCHC 32.8 RDW 13.1 Plt Count 269 Neut % (Auto) 58.8 Lymph % (Auto) 30.7 [place]calfe % (Auto) 6.5 Eos % (Auto) 3.3 Baso % (Auto) 0.7 Neut # (Auto) 4600 Lymph # (Auto) 2400 [place] # (Auto) 500 Eos # (Auto) 300 Baso # (Auto) 100 Sodium 136 L Potassium 5.3 H Chloride 108 H Carbon Dioxide 21 L BUN 36 H Creatinine 1.37 H Estimated GFR 51.2 L BUN/Creatinine Ratio 26.3 H Glucose 98 Hemoglobin A1c 5.9 Calcium 9.5 Magnesium 1.3 L Troponin I TSH 08/18/20 08/18/20 06:06 06:06 WBC RBC Hgb Hct MCV MCH MCHC RDW Plt Count Neut % (Auto) Lymph % (Auto) [place]calfe % (Auto) Eos % (Auto) Baso % (Auto) Neut # (Auto) Lymph # (Auto) [place]fe # (Auto) Eos # (Auto) Baso # (Auto) Sodium Potassium Chloride Carbon Dioxide BUN Creatinine Estimated GFR BUN/Creatinine Ratio Glucose Hemoglobin A1c Calcium Magnesium Troponin I < 0.012 TSH 4.09 [facility] Medical History (Updated 08/17/20 @ 16:55 by Jose Antonio Motta DO) BPH (benign prostatic hyperplasia) CAD (coronary artery disease) CVA (cerebral vascular accident) HLD (hyperlipidemia) HTN (hypertension) Surgical History (Updated 08/17/20 @ 14:29 by Jose Antonio Motta DO) H/O right knee surgery History of ankle surgery Hx of heart artery stent Family History Other Hyperlipidemia Hypertension Social History household members: spouse Smoking Status: Never smoker Assessment & Plan Assessment & Plan narrative: This is a 70-year-old male with a past medical history of CAD (3x stents in 2004), prior stroke with left-sided hemianopia as his only residual deficit, hypertension, BPH who presented with intermittent chest pain for the past week. 1. TIA - patient had <10 minutes of L facial droop, weakness, dysarthia. CT negative so far. MRI ordered. -echo: Mild LVH, normal LVEF, possible mild apical hypokinesis - continue plavix and statin therapy. ABCD2 score of 3. - continue telemetry. 2. Chest pain, acute - HEART score is 5. Will admit for serial troponins, currently negative. EKG without evidence of acute ischemia. He is currently without chest pain since on topical nitroglycerin. - continue home plavix and statin. - has history of CAD with 3x stents. - CXR without evidence of acute disease. -stress Mibi to be completed in a.m. 3. Hx CAD - continue home medications. hx of 3 stents placed in the past. Follows with cardiology in [facility]. Lives in [place], [place]. 4. HTN - continue home medications, metoprolol and lisinopril -patient was severely hypertensive with BP 186/121 during acute pain and subsequently blood pressure has come down to normal with resolution of chest pain 5. BPH - continue home meds Code: Full, surrogate decision maker is the patient's or son Dispo: Admitted Under observation status as his stay is not expected to exceed 2 midnights DVT: Heparin subcu b.i.d. Quality VTE Deep Vein Thrombosis/Pulmonary Embolism Present on Admission: No
[2020-08-19] VITALS (23 sets, daily range): BP systolic 79–185; BP diastolic 45–109; PULSE 82–116; RESP 15–20; TEMP 36.1–36.7; O2SAT 94–100
[2020-08-19] MEDS: NITROGLYCERIN OINT 1 INCH/GM OINT...G. TOP (05:56)
--- NOTE | 2020-08-19 06:30 | PC.NURSE ---
At approx 0539, pt reported the beginning of slight chest discomfort radiating across chest and a feeling of chest tightness, rating it at a 1/10 pain. Pt's BP elevated from 116/73 at 0500 to 156/96 at 0539. Provider called, ordered 1 inch nitro paste and IV metoprolol 5 mg to be given if nitro paste ineffective in reducing blood pressure or chest pain. Nitro paste applied at 0549, blood pressures are as follows: 0549: 185/109 HR 86 0559: 162/103 HR 100 0603: 147/95 HR 101 0612: 148/101 HR 103 0620: 131/89 HR 97 Provider called at 0622 and informed, 5 mg IV metoprolol held.
[2020-08-19 07:17] LABS: Add Manual Diff / Slide Review NO; Basophils Absolute Auto 100 /uL (0-100); Basophils Percent Auto 0.8 % (0-2); Eosinophils Absolute Auto 200 /uL (0-450); Eosinophils Percent Auto 2.9 % (2-4); Hematocrit 39.9 % (41-53); Hemoglobin 13.2 g/dL (13.5-17.5); Lymphocytes Absolute Auto 1900 /uL (1100-4500); Lymphocytes Percent Auto 22.8 % (25-40); Mean Corpuscular HGB Conc 33.1 % (30-36); Mean Corpuscular Hemoglobin 31.3 PG (26-34); Mean Corpuscular Volume 94.6 fL (80-100); Monocytes Absolute Auto 500 /uL (0-900); Neutrophils Absolute Auto 5600 /uL (1500-7000); Neutrophils Percent Auto 67.5 % (50-75); Platelet Count 258 X10^3/uL (150-400); Red Blood Cell Count 4.22 X10^6/uL (4.5-5.9); Red Cell Distribution Width 12.9 % (11.6-14.8); White Blood Cell Count 8.3 X10^3/uL (4.5-11.0)
[2020-08-19 07:29] LABS: BUN Creatinine Ratio 28.5 (6-22); Blood Urea Nitrogen 43 mg/dL (9-20); Calcium 9.4 mg/dL (8.4-10.2); Carbon Dioxide 22 mmol/L (22-32); Chloride 107 mmol/L (98-107); Estimated Glomerular Filt Rate 45.8 mL/min (>60); Glucose 102 mg/dL (80-110); HEMOLYSIS < 15 (0-50); Magnesium 1.7 mg/dL (1.6-2.3); Potassium 4.7 mmol/L (3.4-5.1); Sodium 134 mmol/L (137-145)
--- NOTE | 2020-08-19 07:59 | PC.NURSE ---
Addendum entered by Silvia Ogden R.N. 08/19/20 08:33: Pt given IV Morphine, IV Hydralazine and all his AM meds. Given SL Nitro per Dr Crerato as well. BP now 120/81 at approx 0830. HR 114. Pt on tele. No changes in EKG per DR Cerrato. Pt's pain is better now. Stress test today will be resting per . Will continue to monitor. Help with this situation given this AM by CHRIS Escalera. Call light in reach. Original Note: Day shift: Pt OOB to bathroom and back to bed. C/o chest pain. BP 205/103. Placed on 4L NC. Dr Cerrato notified. Giving IV morphine. PO Metoprolol and ordered IV Hydralizine. city distribution clerk notified of Pt's condition as well.
[2020-08-19] MEDS: METOPROLOL IR 25 MG TABLET 100 MG PO (08:06)
[2020-08-19] MEDS: HYDRALAZINE 20 MG/ML VIAL 10 MG IV (08:07)
[2020-08-19] MEDS: ASPIRIN EC 81 MG TABLET PO (08:07)
[2020-08-19] MEDS: MORPHINE 2 MG/ML INJ IV ×2 (08:08→08:14)
[2020-08-19] MEDS: TAMSULOSIN 0.4 MG CAPSULE PO (08:09)
[2020-08-19] MEDS: PANTOPRAZOLE DR 20 MG TABLET PO (08:09)
[2020-08-19] MEDS: ATORVASTATIN 20 MG TABLET 80 MG PO (08:09)
[2020-08-19] MEDS: GABAPENTIN 300 MG CAPSULE PO ×2 (08:09→20:54)
[2020-08-19] MEDS: FENOFIBRATE, MICRONIZED 67 MG CAPSULE 201 MG PO (08:11)
[2020-08-19] MEDS: HEPARIN 5,000 UNIT/ML VIAL 5000 UNIT SUBCUT ×2 (08:17→20:54)
[2020-08-19] MEDS: SODIUM CHLORIDE 0.9% FLUSH 10 ML IV (08:42)
[2020-08-19 08:45] LABS: Troponin I < 0.012 ng/mL (0.01-0.034)
--- NOTE | 2020-08-19 08:59 | PC.NURSE ---
Day shift: Pt's BP 75/45 w/ HR 59. Placed with feet above head and Dr Cerrato notified. ordered 500ml IV bolus. WIll continue to monitor.
--- NOTE | 2020-08-19 09:04 | PC.NURSE ---
Day shift: Nitro patch removed per Dr Cerrato at approx 0905. Remainder of paste wiped off with cloth. Pt's Son called at this time and was given an update. IV Bolus infusing at this time. LAst BP 75/51 w/ HR 60.
[2020-08-19] MEDS: SODIUM CHLORIDE 0.9% 500 ML 999 ML IV (09:13)
--- NOTE | 2020-08-19 12:38 | PC.NURSE ---
Day shift: Pt off unit for Stress Test at approx 1245. Taken off tele and WATER RESOURCE AGENT informed. Last BP 117/76 with HR 82. RA 97%. No pain or nausea at this time. Taken to test in WC by JUSTYNA RN. Pt's Son in room for support and Son has been updated.
--- NOTE | 2020-08-19 13:18 | PM.TREADMILL ---
Cardiac Stress Test Report Referral & Results Date Patient Seen: 08/19/20 Time Patient Seen: 13:18 Requesting provider: Jose Antonio Motta Indication: Chest pain Rest ECG: Sinus rhythm Procedure Note: After Lexiscan injection had minimal dyspnea and no chest pain No significant ST changes after Lexiscan injection Occasional PVCs Impression: Normal Lexiscan stress test Please note: Actual ECG tracings can be found in the PACS system.
--- NOTE | 2020-08-19 14:09 | PC.NURSE ---
Day shift: Pt back on AC unit at approx 1410. Denies any chest pain or nausea. Back on tele. Pt will eat lunch now. BP 94/63. HR reg 85. RA 94%. Agrees to not get OOB w/o help from staff.
--- NOTE | 2020-08-19 16:00 | CM.DANOTE ---
Discharge Planning/Care Management DCP: assessment: case received, EMR reviewed and met now with pt. Introduced self and role. Pt is a 70 year old male who lives with his Helen in [place]. He admitted to care of hospitalist team 08/17. PCP: DR. Earnest Reardon/[facility] Admission status: currently OBS: confirmed by UR RN Hannah. Hannah confirms admission status change now to INPT: 08/19 Payer: Medicare and [facility] Pt and his traveled here to be with their son Santhosh and his family to celebrate a birthday. They had planned to go right back home but I ended up in the hospital. Dr. Carranza confirms now that he is keeping pt again tonight. Pt has hx of CVA and invasive cardiac procedures and his workup continues to be in process. P: pt is hopeful he will be deemed stable for d/c so he and his can return to [facility]. DCP team will follow Advanced directive, confirm from FAMILY Start: 08/17/20 13:50 Freq: Q24H Status: Complete Protocol: Document 08/17/20 13:50 KLP (Rec: 08/17/20 14:28 KLP [id number]) Advance Directive, confirm on record Time 14:28 Person contacted patient Copy received No Document 08/18/20 13:24 YAD (Rec: 08/18/20 13:25 YAD [id number]) Advance Directive, confirm on record Time 14:28 Person contacted patient Copy received No Time 13:24 Person contacted Pt Copy received No CM Discharge Assessment Start: 08/19/20 15:58 Freq: Status: Active Protocol: Document 08/19/20 15:59 ITV (Rec: 08/19/20 15:59 ITV [id number]) Discharge Planning Assessment Advance Directives? Yes Advance Directives on File No History Provided By Patient,Medical Record Prior Living Arrangements House Comment currently traveling to see family Household Members spouse Independent with ADL's Yes Is patient alert and oriented? Yes
[2020-08-19] MEDS: HEPARIN 5,000 UNIT/ML VIAL 5000 UNIT IV (17:38)
[2020-08-19 17:53] LABS: INR 1.1 (0.9-1.3); Prothrombin Time 11.7 SECONDS (10.1-12.7)
[2020-08-19 17:56] LABS: PTT Partial Thromboplastin Tim 32 SECONDS (26.4-36.2)
[2020-08-19] MEDS: HEPARIN DRIP 25,000 UNIT/500 ML IV.SOLN 1000 UNIT IV (18:04)
[2020-08-19] MEDS: SODIUM CHLORIDE 0.9% 1,000 ML 100 ML IV (18:05)
--- NOTE | 2020-08-19 18:05 | P.DS_ITS ---
History of Present Illness <Kishor Cerrato MD - Last Filed: 08/19/20 18:52> History of Present Illness Chief complaint: chest pain Narrative: This is a 70-year-old male with a past medical history of CAD (3x stents in 2004), prior stroke with left-sided hemianopia as his only residual deficit, hypertension, BPH who presented with intermittent chest pain for the past week. Patient states that he has been having episodes of chest pain, usually at night that her left-sided and somewhat radiating into his left shoulder that usually resolve with changing to his other side. Had however this morning the chest pain would not go way. This pain was different than the others and was more of a squeezing like sensation over the left side of his chest with radiation into his left arm. Subsequently at the same time, he experienced less than 10 minutes of left-sided facial droop, left arm weakness, numbness, and difficulty speaking. The neurological symptoms were not stated to the emergency room provider. He states further that over the past few weeks he has become quite sweaty with exertion but denies any shortness of breath or palpitations. He denies any headaches, or vision changes. He denies fever or chills. He typically lives in [place], currently visiting the area. In the emergency room, the patient's vital signs were unremarkable. Initial laboratory evaluation did not show any obvious abnormalities, but potassium was mildly high at 5.3, CO2 slightly low 18, BUN slightly up at 34, creatinine slightly up at 1.38, his baseline is unknown. Glucose was 155. His troponin testing was negative x2. He was admitted initially for evaluation of his chest pain after consultation with cardiology recommended stress testing, however given his TIA symptoms he was also ordered for a CT scan which did not show any active bleeding and an MRI. Discharge Providers <Kishor Cerrato MD - Last Filed: 08/19/20 18:52> Provider Date of admission: 08/19/20 11:35 Discharge provider: Kishor Cerrato MD <Jomar Del Castillo MD - Last Filed: 09/04/22 09:40> Provider Discharge Date: 08/19/20 Summary <Kishor Cerrato MD - Last Filed: 08/19/20 18:52> Hospital Course Discharge Diagnosis: 1. Acute coronary syndrome 2. TIA 3. History of CAD 4. Acute hypertension This is a 70-year-old patient with history of CAD, CVA, carotid endarterectomy, coronary stent x 3 in 2004 which was done with [facility] cardiology. As noted, patient presented with intermittent chest pain for the previous week. Over the course of past 2 days since admission he has had intermittent severe anterior chest pain associated with spikes in blood pressure. Multiple serial EKGs and troponin were normal. His echo on 08/17/2020 showed mild increased LV thickness, normal LVEF 55-60%, possible hypokinetic apical septum, normal RV, no significant valvular abnormalities. Last night and early this morning he had recurrent chest pain associated with severe spikes in BP with pain not relieved after 6 mg IV morphine, sublingual nitroglycerin and topical nitroglycerin. We did bump his metoprolol to 100 mg b.i.d.. Since blood pressure was staying up after sublingual and topical nitroglycerin he received dose of hydralazine 10 mg IV which did bring down his BP. However later in the day he actually became hypotensive with BP in the 80's systolic which I think is residual from medications he got earlier in the day. Patient has high risk nuclear stress test which was completed this afternoon. He has a severe large reversible defect in the anterior apical 1/3 to 1/4 myocardium concerning for severe ischemia. He has normal LV size with 60% EF post stress. Also noted was transient ischemic dilation suggesting high risk CAD. Reviewed stress test results with Dr. Briceno, cardiology, who recommends transfer for cardiac catheterization. We were hoping for transfer to night but at this time there is no bed available. Patient has been chest pain-free since this morning. He is being started on heparin drip in addition to aspirin, Plavix, metoprolol, atorvastatin which he is been taking. He is started on NS maintenance fluid to help support blood pressure since he has been hypotensive this afternoon. He will be at bedrest bedside commode. NPO after midnight. Patient also had reported episode of left facial droop, weakness and dysarthria lasting less than 10 minutes which occurred prior to admission. Brain MRI show ed no acute infarction but he does have chronic right occipital and small chronic posterior left temporal lacunar areas of infarct. Brain MRA showed multi focal high-grade stenosis involving P1 segment of right posterior cerebral artery and high-grade stenosis of distal P1 segment of left posterior cerebral artery but no hemodynamically significant stenosis of anterior circulation, no large vessel occlusion or aneurysm. Neck MR showed 50% or less stenosis of origins of ICA bilaterally, mild stenosis origin of right vertebral artery and moderate stenosis of origin of left vertebral artery. Patient has not had recurrence of TIA symptoms and is being managed with medications as for cardiac disease. Exam <Kishor Cerrato MD - Last Filed: 08/19/20 18:52> Vital Signs (past 8 hours): - 08/19/20 11:01 08/19/20 11:49 08/19/20 15:45 Temperature 97.8 F 97.9 F Pulse Rate 84 82 Respiratory Rate 16 20 Blood Pressure 101/71 79/45 L Pulse Oximetry 94 96 96 Oxygen Delivery Method Room Air Oxygen Flow Rate 0 Objective <Kishor Cerrato MD - Last Filed: 08/19/20 18:52> Labs 08/19/20 06:58 08/19/20 06:58 Labs: Laboratory Results - last 24 hr 08/19/20 08/19/20 08/19/20 06:58 06:58 06:58 WBC 8.3 RBC 4.22 L Hgb 13.2 L Hct 39.9 L MCV 94.6 MCH 31.3 MCHC 33.1 RDW 12.9 Plt Count 258 Neut % (Auto) 67.5 Lymph % (Auto) 22.8 L [place] % (Auto) 6.0 Eos % (Auto) 2.9 Baso % (Auto) 0.8 Neut # (Auto) 5600 Lymph # (Auto) 1900 [place] # (Auto) 500 Eos # (Auto) 200 Baso # (Auto) 100 PT INR APTT Sodium 134 L Potassium 4.7 Chloride 107 Carbon Dioxide 22 BUN 43 H Creatinine 1.51 H Estimated GFR 45.8 L BUN/Creatinine Ratio 28.5 H Glucose 102 Calcium 9.4 Magnesium 1.7 Troponin I < 0.012 08/19/20 17:35 WBC RBC Hgb Hct MCV MCH MCHC RDW Plt Count Neut % (Auto) Lymph % (Auto) [place] % (Auto) Eos % (Auto) Baso % (Auto) Neut # (Auto) Lymph # (Auto) [place] # (Auto) Eos # (Auto) Baso # (Auto) PT 11.7 INR 1.1 APTT 32 Sodium Potassium Chloride Carbon Dioxide BUN Creatinine Estimated GFR BUN/Creatinine Ratio Glucose Calcium Magnesium Troponin I PFSH <Kishor Cerrato MD - Last Filed: 08/19/20 18:52> Medical History BPH (benign prostatic hyperplasia) CAD (coronary artery disease) CVA (cerebral vascular accident) HLD (hyperlipidemia) HTN (hypertension) Surgical History H/O right knee surgery History of ankle surgery Hx of heart artery stent Family History Other Hyperlipidemia Hypertension Social History household members: spouse Smoking Status: Never smoker Discharge Assessment & Plan <Kishor Cerrato MD - Last Filed: 08/19/20 18:52> Assessment and Plan Assessment: 1. Acute coronary syndrome 2. TIA 3. History of CAD 4. Acute hypertension Plan of Treatment: Transfer to [facility] for cardiac catheterization Discharge Plan Discharge Plan Patient Disposition: [facility] Visit Report/Discharge Packet Instructions: Chemical Stress Test Visit Report Forms: Patient Portal/API, Stroke Signs & Symptoms Discharges patient from system. Discharge Date/Time: 08/20/20 04:00
[2020-08-19] MEDS: SODIUM CHLORIDE 0.9% 500 ML 1000 ML IV (18:15)
--- NOTE | 2020-08-19 18:51 | PM.PN.1 ---
Subjective Subjective Date Patient Seen: 08/19/20 Interval history: 1. Acute coronary syndrome 2. TIA 3. History of CAD 4. Acute hypertension This is a 70-year-old patient with history of CAD, CVA, carotid endarterectomy, coronary stent x 3 in 2004 which was done with [facility] cardiology. As noted, patient presented with intermittent chest pain for the previous week. Over the course of past 2 days since admission he has had intermittent severe anterior chest pain associated with spikes in blood pressure. Multiple serial EKGs and troponin were normal. His echo on 08/17/2020 showed mild increased LV thickness, normal LVEF 55-60%, possible hypokinetic apical septum, normal RV, no significant valvular abnormalities. Last night and early this morning he had recurrent chest pain associated with severe spikes in BP with pain not relieved after 6 mg IV morphine, sublingual nitroglycerin and topical nitroglycerin. We did bump his metoprolol to 100 mg b.i.d.. Since blood pressure was staying up after sublingual and topical nitroglycerin he received dose of hydralazine 10 mg IV which did bring down his BP. However later in the day he actually became hypotensive with BP in the 80's systolic which I think is residual from medications he got earlier in the day. Patient has high risk nuclear stress test which was completed this afternoon. He has a severe large reversible defect in the anterior apical 1/3 to 1/4 myocardium concerning for severe ischemia. He has normal LV size with 60% EF post stress. Also noted was transient ischemic dilation suggesting high risk CAD. Reviewed stress test results with Dr. Briceno, cardiology, who recommends transfer for cardiac catheterization. We were hoping for transfer to night but at this time there is no bed available. Patient has been chest pain-free since this morning. He is being started on heparin drip in addition to aspirin, Plavix, metoprolol, atorvastatin which he is been taking. He is started on NS maintenance fluid to help support blood pressure since he has been hypotensive this afternoon. He will be at bedrest bedside commode. NPO after midnight. Patient also had reported episode of left facial droop, weakness and dysarthria lasting less than 10 minutes which occurred prior to admission. Brain MRI showed no acute infarction but he does have chronic right occipital and small chronic posterior left temporal lacunar areas of infarct. Brain MRA showed multi focal high-grade stenosis involving P1 segment of right posterior cerebral artery and high-grade stenosis of distal P1 segment of left posterior cerebral artery but no hemodynamically significant stenosis of anterior circulation, no large vessel occlusion or aneurysm. Neck MR showed 50% or less stenosis of origins of ICA bilaterally, mild stenosis origin of right vertebral artery and moderate stenosis of origin of left vertebral artery. Patient has not had recurrence of TIA symptoms and is being managed with medications as for cardiac disease. Exam Vital Signs (past 8 hours): - 08/19/20 11:01 08/19/20 11:49 08/19/20 15:45 Temperature 97.8 F 97.9 F Pulse Rate 84 82 Respiratory Rate 16 20 Blood Pressure 101/71 79/45 L Pulse Oximetry 94 96 96 Oxygen Delivery Method Room Air Oxygen Flow Rate 0 Objective Labs Result Diagrams: 08/19/20 06:58 08/19/20 06:58 Labs: Laboratory Results - last 24 hr 08/19/20 08/19/20 08/19/20 06:58 06:58 06:58 WBC 8.3 RBC 4.22 L Hgb 13.2 L Hct 39.9 L MCV 94.6 MCH 31.3 MCHC 33.1 RDW 12.9 Plt Count 258 Neut % (Auto) 67.5 Lymph % (Auto) 22.8 L [place] % (Auto) 6.0 Eos % (Auto) 2.9 Baso % (Auto) 0.8 Neut # (Auto) 5600 Lymph # (Auto) 1900 [place] # (Auto) 500 Eos # (Auto) 200 Baso # (Auto) 100 PT INR APTT Sodium 134 L Potassium 4.7 Chloride 107 Carbon Dioxide 22 BUN 43 H Creatinine 1.51 H Estimated GFR 45.8 L BUN/Creatinine Ratio 28.5 H Glucose 102 Calcium 9.4 Magnesium 1.7 Troponin I < 0.012 08/19/20 17:35 WBC RBC Hgb Hct MCV MCH MCHC RDW Plt Count Neut % (Auto) Lymph % (Auto) [place] % (Auto) Eos % (Auto) Baso % (Auto) Neut # (Auto) Lymph # (Auto) [place] # (Auto) Eos # (Auto) Baso # (Auto) PT 11.7 INR 1.1 APTT 32 Sodium Potassium Chloride Carbon Dioxide BUN Creatinine Estimated GFR BUN/Creatinine Ratio Glucose Calcium Magnesium Troponin I [facility] Medical History (Updated 08/17/20 @ 16:55 by Jose Antonio Motta DO) BPH (benign prostatic hyperplasia) CAD (coronary artery disease) CVA (cerebral vascular accident) HLD (hyperlipidemia) HTN (hypertension) Surgical History (Updated 08/17/20 @ 14:29 by Jose Antonio Motta DO) H/O right knee surgery History of ankle surgery Hx of heart artery stent Family History Other Hyperlipidemia Hypertension Social History household members: spouse Smoking Status: Never smoker Quality VTE Deep Vein Thrombosis/Pulmonary Embolism Present on Admission: No
[2020-08-19] MEDS: NORTRIPTYLINE HCL 25 MG CAPSULE 50 MG PO (20:54)
[2020-08-19] MEDS: SENNOSIDES 8.6 MG TABLET PO (20:55)
--- NOTE | 2020-08-19 22:41 | PC.NURSE ---
@1540 pt hypotensive with 79/51 and HR 63; pt denies chest pain, SOB, and dizziness MD notified at 1600; pt encouraged to increase fluid intake; @1915 s/p fluid bolus, bp 99/58, HR 84; Critical troponin of 1.810 reported to MD by float nurseJacinda; pt denies chest pain and SOB; VS of 90/60, 83, 98.0, 17, 97% RA reported to MD; Bedrest; Heparin drip infusing; this RN updated [id number], Tracey about transfer orders to Cardiac hospital, pending bed opening
[2020-08-19 23:57] LABS: PTT Partial Thromboplastin Tim 91 SECONDS (26.4-36.2)
[2020-08-20] VITALS (23 sets, daily range): BP systolic 73–173; BP diastolic 54–108; PULSE 84–100; RESP 10–23; O2SAT 94–100
[2020-08-20] MEDS: NITROGLYCERIN OINT 1 INCH/GM OINT...G. TOP (01:07)
[2020-08-20] MEDS: MORPHINE 2 MG/ML INJ IV ×2 (01:11→01:30)
--- NOTE | 2020-08-20 02:22 | PC.NURSE ---
At 0103 patient was complaining of chest pain 5/10 BP 167/108 P 89, 2 liters of O2 was initiated, Patient is 99%. Nitro paste given on left chest at 0107. Patient had no relief from Nitro paste, Loni DUKES notified of patient status. At 0111 patient was given 2mg morphine IV, chest pain was still 5/10, patient was clutching chest and grimacing in pain, BP 173/104 P 92. After morphine administration patient had no relief of chest pain. Respiratory therapy was paged at 0114 for stat EKG BP 171/101 P 93. At 0130 2mg Morphine given IV, BP 157/98 P87. Patient pain level was 4/10. Patient continued to grimace and have mild relief from chest pain. Loni DUKES was updated about patient status. Patient was moved to ICU at 0214, BP 128/92 P 86. Patient still continues to have waves of intermittent chest pain. Report given to Maggie PEREZ ICU.
[2020-08-20] MEDS: NITROGLYCERIN 50 MG/250 ML INFUS..BTL IV (02:40)
[2020-08-20] MEDS: SODIUM CHLORIDE 0.9% 1,000 ML 1000 ML IV (03:05)
--- NOTE | 2020-08-20 03:28 | P.DS_ITS ---
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 Patient states that he has been having episodes of chest pain, usually at night that her left-sided and somewhat radiating into his left shoulder that usually resolve with changing to his other side. Had however this morning the chest pain would not go way. This pain was different than the others and was more of a squeezing like sensation over the left side of his chest with radiation into his left arm. Subsequently at the same time, he experienced less than 10 minutes of left-sided facial droop, left arm weakness, numbness, and difficulty speaking. The neurological symptoms were not stated to the emergency room provider. He states further that over the past few weeks he has become quite sweaty with exertion but denies any shortness of breath or palpitations. He denies any headaches, or vision changes. He denies fever or chills. He typically lives in [place], currently visiting the area. In the emergency room, the patient's vital signs were unremarkable. Initial la boratory evaluation did not show any obvious abnormalities, but potassium was mildly high at 5.3, CO2 slightly low 18, BUN slightly up at 34, creatinine slightly up at 1.38, his baseline is unknown. Glucose was 155. His troponin testing was negative x2. He was admitted initially for evaluation of his chest pain after consultation with cardiology recommended stress testing, however given his TIA symptoms he was also ordered for a CT scan which did not show any active bleeding and an MRI. Discharge Providers Provider Date of admission: 08/19/20 11:35 Discharge Date: 08/20/20 Discharge provider: TRUDY Salcedo Summary Hospital Course Discharge Diagnosis: 1. Acute coronary syndrome 2. TIA 3. History of CAD 4. Acute hypertension Hospital Course: As noted, patient presented with intermittent chest pain for the previous week. Over the course of past 2 days since admission he has had intermittent severe anterior chest pain associated with spikes in blood pres sure. Multiple serial EKGs and troponin were normal. His echo on 08/17/2020 showed mild increased LV thickness, normal LVEF 55-60%, possible hypokinetic apical septum, normal RV, no significant valvular abnormalities. Last night and early this morning he had recurrent chest pain associated with severe spikes in BP with pain not relieved after 6 mg IV morphine, sublingual nitroglycerin and topical nitroglycerin. We did bump his metoprolol to 100 mg b.i.d.. Since blood pressure was staying up after sublingual and topical nitroglycerin he received dose of hydralazine 10 mg IV which did bring down his BP. However later in the day he actually became hypotensive with BP in the 80's systolic which I think is residual from medications he got earlier in the day. Patient has high risk nuclear stress test which was completed this afternoon. He has a severe large reversible defect in the anterior apical 1/3 to 1/4 myocardium concerning for severe ischemia. He has normal LV size with 60% EF post stress. Also noted was transient ischemic dilation suggesting high risk CAD. Reviewed stress test results with Dr. Briceno, cardiology, who recommends transfer for cardiac catheterization. We were hoping for transfer to night but at this time there is no bed available. Patient has been chest pain-free since this morning. He is being started on heparin drip in addition to aspirin, Plavix, metoprolol, atorvastatin which he is been taking. He is started on NS maintenance fluid to help support blood pressure since he has been hypotensive this afternoon. He will be at bedrest bedside commode. NPO after midnight. Patient also had reported episode of left facial droop, weakness and dysarthria lasting less than 10 minutes which occurred prior to admission. Brain MRI showed no acute infarction but he does have chronic right occipital and small chronic posterior left temporal lacunar areas of infarct. Brain MRA showed multi focal high-grade stenosis involving P1 segment of right posterior cerebral artery and high-grade stenosis of distal P1 segment of left posterior cerebral a rtery but no hemodynamically significant stenosis of anterior circulation, no large vessel occlusion or aneurysm. Neck MR showed 50% or less stenosis of origins of ICA bilaterally, mild stenosis origin of right vertebral artery and moderate stenosis of origin of left vertebral artery. Patient has not had recurrence of TIA symptoms and is being managed with medications as for cardiac disease. 1735 08/20/20 yesterday evening patient's troponin elevated to 1.810, at approximately 2:00 a.m. the patient developed crushing chest pain and shortness of breath that was not relieved with nitro paste or morphine patient also was hypertensive with a blood pressure 173/104, heart rate of 100, patient developed shortness of breath and was placed on nasal cannula 2 L. EKG was unchanged from previous. Patient was transferred to the ICU. I consulted and reviewed the case with Dr. Dukes banking pin adjuster at [facility] who recommended starting the patient on a nitro drip and request expedited transfer to a facility. Patient subsequently after starting the nitro drip became hypotensive with a blood pressure of 75/40, and a heart rate of 90 the nitro drip was stopped and patient was bolused with a L of fluid. Status at Discharge Cognitive/behavioral status at discharge: oriented Functional status at discharge: independent ambulation Overall status at discharge: other Time Spent with Patient Time spent: Greater than 30 minutes Exam Vital Signs (past 8 hours): - 08/19/20 20:26 08/19/20 23:48 08/20/20 00:00 Temperature 97.3 F L Pulse Rate 85 Respiratory Rate 16 Blood Pressure 96/62 Pulse Oximetry 97 96 96 08/20/20 01:00 08/20/20 01:07 08/20/20 01:14 Temperature Pulse Rate 84 89 100 H Respiratory Rate 22 Blood Pressure 161/100 H 167/108 H 173/104 H Pulse Oximetry 99 08/20/20 01:25 08/20/20 01:51 08/20/20 02:30 Temperature Pulse Rate 87 86 Respiratory Rate 23 Blood Pressure 165/98 H 126/82 Pulse Oximetry 100 97 08/20/20 02:40 Temperature Pulse Rate 95 H Respiratory Rate Blood Pressure 102/68 Pulse Oximetry Oxygen Delivery Method Nasal Cannula Oxygen Flow Rate 2 Narrative Exam Narrative: GENERAL APPEARANCE: Well developed, well nourished, in no acute distress. SKIN: Inspection of the skin reveals no rashes, ulcerations or petechiae. HEENT: Normocephalic atraumatic, extraocular muscles are intact, oropharynx is clear and mucous membranes are moist, neck is supple without adenopathy NECK: Supple and symmetric. There was no thyroid enlargement, and no tenderness, or masses were felt. CHEST: Normal AP diameter and normal contour without any kyphoscoliosis. LUNGS: Auscultation of the lungs revealed no wheezes, rhonchi, or rales. CARDIOVASCULAR: There was a regular rate and rhythm without any murmurs, gallops, rubs. Peripheral pulses were 2+ and symmetric. ABDOMEN: Soft and nontender with normal bowel sounds. No ascites was noted. MUSCULOSKELETAL: There was no tenderness or effusions noted. Muscle strength and tone were normal. EXTREMITIES: No cyanosis, clubbing or edema. NEUROLOGIC: Alert and oriented x 3. Normal affect. Strength is +5/5 in the Upper Extremities and Lower Extremities Bilaterally. Sensation to touch was normal. :Left hemianopia (old from prior CVA, unchanged) Objective Labs Result Diagrams: 08/19/20 06:58 08/19/20 06:58 Labs: Laboratory Results - last 24 hr 08/19/20 08/19/20 08/19/20 06:58 06:58 06:58 WBC 8.3 RBC 4.22 L Hgb 13.2 L Hct 39.9 L MCV 94.6 MCH 31.3 MCHC 33.1 RDW 12.9 Plt Count 258 Neut % (Auto) 67.5 Lymph % (Auto) 22.8 L [place] % (Auto) 6.0 Eos % (Auto) 2.9 Baso % (Auto) 0.8 Neut # (Auto) 5600 Lymph # (Auto) 1900 [place] # (Auto) 500 Eos # (Auto) 200 Baso # (Auto) 100 PT INR APTT Sodium 134 L Potassium 4.7 Chloride 107 Carbon Dioxide 22 BUN 43 H Creatinine 1.51 H Estimated GFR 45.8 L BUN/Creatinine Ratio 28.5 H Glucose 102 Calcium 9.4 Magnesium 1.7 Troponin I < 0.012 08/19/20 08/19/20 08/19/20 17:35 17:35 23:35 WBC RBC Hgb Hct MCV MCH MCHC RDW Plt Count Neut % (Auto) Lymph % (Auto) [place] % (Auto) Eos % (Auto) Baso % (Auto) Neut # (Auto) Lymph # (Auto) [place] # (Auto) Eos # (Auto) Baso # (Auto) PT 11.7 INR 1.1 APTT 32 91 H* D Sodium Potassium Chloride Carbon Dioxide BUN Creatinine Estimated GFR BUN/Creatinine Ratio Glucose Calcium Magnesium Troponin I 1.810 H* [facility] Medical History BPH (benign prostatic hyperplasia) CAD (coronary artery disease) CVA (cerebral vascular accident) HLD (hyperlipidemia) HTN (hypertension) Surgical History H/O right knee surgery History of ankle surgery Hx of heart artery stent Family History Other Hyperlipidemia Hypertension Social History household members: spouse Smoking Status: Never smoker Discharge Assessment & Plan Assessment and Plan Assessment: 1. Acute coronary syndrome 2. TIA 3. History of CAD 4. Acute hypertension Plan of Treatment: Transfer to [facility] for cardiac catheterization Discharge Plan Discharge orders & Medications Discharge Orders: Discharge (Order); Ordered 08/20/20 Ordered By: Loni Higgins Prescriptions: No Action atorvastatin 40 mg tablet 80 mg PO DAILY RF: 0 clopidogrel 75 mg tablet 75 mg PO DAILY RF: 0 metoprolol tartrate 50 mg tablet 37.5 mg PO BID RF: 0 gabapentin 300 mg capsule 300 mg PO BID RF: 0 lisinopril 40 mg tablet 20 mg PO DAILY RF: 0 nortriptyline [Pamelor] 50 mg capsule 50 mg PO DAILY RF: 0 fenofibrate nanocrystallized 145 mg tablet 145 mg PO DAILY RF: 0 Fish Oil 100-160-1,000 mg Capsule 1,000 cap PO DAILY RF: 0 Adult One Daily Multivitamin 0.4 mg Tablet 0.4 tab PO DAILY RF: 0 nortriptyline 50 mg capsule 50 mg PO BEDTIME RF: 0 omeprazole 20 mg Tablet,Delayed Release (Dr/Ec) 20 mg PO DAILY RF: 0 tamsulosin 0.4 mg capsule 0.4 mg PO DAILY RF: 0 vitamin E [Natural Vitamin E] 200 unit Capsule 100 unit PO DAILY RF: 0 sennosides [senna] 8.6 mg Tablet 8.6 mg PO BEDTIME RF: 0 Visit Report/Discharge Packet Instructions: Chemical Stress Test Quality VTE Deep Vein Thrombosis/Pulmonary Embolism Present on Admission: No
--- NOTE | 2020-08-20 04:20 | PC.NURSE ---
ICU Note-Patient transferred to ICU room 230 at 0215, A/Ox4, CP 7-8/10, HR SR, BBB, multi-focal PVCs, initial BP 153/120, then 146/98 when Nitro gtt started at 5mcg/min, on 2L SpO2 >94%, LS CTA. Heparin gtt infusing at 900 units or 18ml/hr per protocol, NS @ 100ml/hr. CP gradually resolved, BP decreasing down to 87/60(69), patient lightheaded while standing at bedside to void, 1000ml NS bolus started at 0305, Nitro gtt has been stopped. At 0400, patient transferred to [facility], stable and pain free, report called to Carol PEREZ, patient's Helen has been notified, all of patient's belongings sent with him.
== END 2020-08-20 04:00 | disposition short-term general hospital (02) | DRG 281 ==
LOC: ED 12:26 → AC 12:29 → ICU 08-20 02:12
PROVIDERS: Emergency Medicine; Internal Medicine; Nurse Practitioner Family; Admitting Provider Internal Medicine; Emergency Provider Emergency Medicine; Referring Provider Emergency Medicine; Visit Provider Internal Medicine
DX: I21.4 Non-ST elevation (NSTEMI) myocardial infarction (principal); G45.9 Transient cerebral ischemic attack, unspecified; Z95.5 Presence of coronary angioplasty implant and graft; H53.47 Heteronymous bilateral field defects; I69.398 Other sequelae of cerebral infarction; I25.10 Atherosclerotic heart disease of native coronary artery without angina pectoris; I10 Essential (primary) hypertension; N40.0 Benign prostatic hyperplasia without lower urinary tract symptoms; E78.5 Hyperlipidemia, unspecified; Z20.822 Contact with and (suspected) exposure to COVID-19
CPT/HCPCS: 36415; 70450; 70548; 70553; 71045; 78452; 80048; 80053; 82550; 82553; 83036; 83690; 83735; 83880; 84443; 84484; 85025; 85610; 85730; 87635; 93005; 93017; 93306; 94760; 99284; C9803; G0378; A9502; A9579; J0360; J1644; J2270; J2785; J3475